=== PATIENT | female | born 1955 | race Caucasian/White ===

== ENCOUNTER → 2019-07-03 10:13 | Outpatient (BNVA) | payer OTHER, SELFPAY | PROVIDERS: Family Provider Nurse Practitioner; PCP Nurse Practitioner; Visit Provider Nurse Practitioner | DX: Z51.81 Encounter for therapeutic drug level monitoring (principal); Z79.01 Long term (current) use of anticoagulants | CPT/HCPCS: 85610 ==

== ENCOUNTER → 2019-08-31 09:34 | Outpatient (BNVA) | payer OTHER, SELFPAY | PROVIDERS: Family Provider Nurse Practitioner; PCP Nurse Practitioner; Visit Provider Nurse Practitioner | DX: Z79.01 Long term (current) use of anticoagulants (principal) | CPT/HCPCS: 85610 ==

== ENCOUNTER → 2019-09-03 10:03 | Outpatient (BNVA) | payer OTHER, SELFPAY | PROVIDERS: Family Provider Nurse Practitioner; PCP Nurse Practitioner; Visit Provider Nurse Practitioner | DX: Z79.01 Long term (current) use of anticoagulants (principal) | CPT/HCPCS: 85610 ==

== ENCOUNTER → 2019-09-10 10:03 | Outpatient (BNVA) | payer OTHER, SELFPAY | PROVIDERS: Family Provider Nurse Practitioner; PCP Nurse Practitioner; Visit Provider Nurse Practitioner | DX: Z79.01 Long term (current) use of anticoagulants (principal) | CPT/HCPCS: 85610 ==

== ENCOUNTER → 2019-09-12 08:25 | Outpatient (BNVA) | payer OTHER, SELFPAY | PROVIDERS: Family Provider Nurse Practitioner; PCP Nurse Practitioner; Visit Provider Nurse Practitioner | DX: Z79.01 Long term (current) use of anticoagulants (principal) | CPT/HCPCS: 85610 ==

== ENCOUNTER → 2019-09-19 12:15 | Outpatient (BNVA) | payer OTHER, SELFPAY | PROVIDERS: Family Provider Nurse Practitioner; PCP Nurse Practitioner; Visit Provider Nurse Practitioner | DX: Z79.01 Long term (current) use of anticoagulants (principal) | CPT/HCPCS: 85610 ==

== ENCOUNTER → 2019-09-26 08:43 | Outpatient (BNVA) | payer OTHER, SELFPAY | PROVIDERS: Family Provider Nurse Practitioner; PCP Nurse Practitioner; Visit Provider Nurse Practitioner | DX: Z00.00 Encounter for general adult medical examination without abnormal findings (principal); Z79.01 Long term (current) use of anticoagulants | CPT/HCPCS: 85610 ==

== ENCOUNTER → 2019-10-10 09:04 | Outpatient (BNVA) | payer OTHER, SELFPAY | PROVIDERS: Family Provider Nurse Practitioner; PCP Nurse Practitioner; Visit Provider Nurse Practitioner | DX: Z00.00 Encounter for general adult medical examination without abnormal findings (principal); Z79.01 Long term (current) use of anticoagulants | CPT/HCPCS: 85610 ==

== ENCOUNTER → 2019-11-15 10:09 | Outpatient (BNVA) | payer OTHER, SELFPAY | PROVIDERS: Family Provider Nurse Practitioner; PCP Nurse Practitioner; Visit Provider Nurse Practitioner | DX: Z51.81 Encounter for therapeutic drug level monitoring (principal); Z79.01 Long term (current) use of anticoagulants | CPT/HCPCS: 85610 ==

== ENCOUNTER → 2019-11-22 09:53 | Outpatient (BNVA) | payer OTHER, SELFPAY | PROVIDERS: Family Provider Nurse Practitioner; PCP Nurse Practitioner; Visit Provider Nurse Practitioner | DX: Z79.01 Long term (current) use of anticoagulants (principal) | CPT/HCPCS: 85610 ==

== ENCOUNTER → 2019-12-07 09:38 | Outpatient (BNVA) | payer OTHER, SELFPAY | PROVIDERS: Family Provider Nurse Practitioner; PCP Nurse Practitioner; Visit Provider Internal Medicine Interventional Cardiology | DX: Z79.01 Long term (current) use of anticoagulants (principal) | CPT/HCPCS: 85610 ==

== ENCOUNTER → 2019-12-20 08:43 | Outpatient (BNVA) | payer OTHER, SELFPAY | PROVIDERS: Family Provider Nurse Practitioner; PCP Nurse Practitioner; Visit Provider Internal Medicine Interventional Cardiology | DX: Z79.01 Long term (current) use of anticoagulants (principal); Z51.81 Encounter for therapeutic drug level monitoring | CPT/HCPCS: 85610 ==

== ENCOUNTER 2019-12-28 11:07 | Outpatient (CLI) | payer OTHER, SELFPAY | END 2019-12-28 11:08 | disposition home or self-care (01) | PROVIDERS: PCP Nurse Practitioner; Visit Provider Family Medicine | DX: Z79.01 Long term (current) use of anticoagulants (principal); Q23.1 Congenital insufficiency of aortic valve | CPT/HCPCS: 85610 ==

== ENCOUNTER 2020-01-01 12:28 | Outpatient (CLI) | payer OTHER, SELFPAY ==
[2020-01-01 13:10] LABS: INR 3.89 (0.8-1.2)
== END 2020-01-01 12:29 | disposition home or self-care (01) ==
PROVIDERS: PCP Nurse Practitioner; Visit Provider Registered Nurse
DX: Z79.01 Long term (current) use of anticoagulants (principal); Q23.1 Congenital insufficiency of aortic valve
CPT/HCPCS: 85610

== ENCOUNTER 2020-01-07 12:49 | Outpatient (CLI) | payer OTHER, SELFPAY ==
[2020-01-07 13:37] LABS: INR 2.66 (0.8-1.2)
== END 2020-01-07 12:50 | disposition home or self-care (01) ==
PROVIDERS: Visit Provider Registered Nurse
DX: Z79.01 Long term (current) use of anticoagulants (principal); Q23.1 Congenital insufficiency of aortic valve
CPT/HCPCS: 85610

== ENCOUNTER 2020-09-01 10:33 | Outpatient (CLI) | payer OTHER, SELFPAY ==
[2020-09-01 11:08] LABS: INR 1.63 (0.8-1.2)
== END 2020-09-01 10:34 | disposition home or self-care (01) ==
LOC: LAB 10:38
PROVIDERS: Visit Provider Registered Nurse
DX: Z79.01 Long term (current) use of anticoagulants (principal); Q23.1 Congenital insufficiency of aortic valve
CPT/HCPCS: 36415; 85610

== ENCOUNTER 2020-12-25 10:45 | Outpatient (CLI) | payer OTHER, SELFPAY ==
[2020-12-25 11:19] LABS: INR 2.36 (0.8-1.2)
== END 2020-12-25 10:46 | disposition home or self-care (01) ==
PROVIDERS: Visit Provider Registered Nurse
DX: Z79.01 Long term (current) use of anticoagulants (principal); Q23.1 Congenital insufficiency of aortic valve
CPT/HCPCS: 36415; 85610

== ENCOUNTER 2021-09-02 09:53 | Outpatient (CLI) | payer OTHER, SELFPAY ==
[2021-09-02 10:43] LABS: INR 2.29 (0.8-1.2)
== END 2021-09-02 09:54 | disposition home or self-care (01) ==
LOC: LAB 09:57
PROVIDERS: Visit Provider Nurse Practitioner
DX: Z79.01 Long term (current) use of anticoagulants (principal); Q23.1 Congenital insufficiency of aortic valve
CPT/HCPCS: 85610

== ENCOUNTER 2021-09-28 11:04 | Outpatient (CLI) | payer OTHER, SELFPAY ==
[2021-09-28 12:12] LABS: INR 2.27 (0.8-1.2)
== END 2021-09-28 11:05 | disposition home or self-care (01) ==
PROVIDERS: Visit Provider Nurse Practitioner
DX: Z79.01 Long term (current) use of anticoagulants (principal); Q23.1 Congenital insufficiency of aortic valve
CPT/HCPCS: 36415; 85610

== ENCOUNTER 2021-10-27 11:05 | Outpatient (CLI) | payer MEDICARE, OTHER, SELFPAY ==
[2021-10-27 12:12] LABS: INR 2.52 (0.8-1.2)
== END 2021-10-27 11:06 | disposition home or self-care (01) ==
PROVIDERS: Visit Provider Nurse Practitioner
DX: Z79.01 Long term (current) use of anticoagulants (principal); Q23.1 Congenital insufficiency of aortic valve
CPT/HCPCS: 36415; 85610

== ENCOUNTER 2021-11-24 13:39 | Outpatient (CLI) | payer MEDICARE, SELFPAY ==
[2021-11-24 15:02] LABS: INR 2.35 (0.8-1.2)
== END 2021-11-24 13:40 | disposition home or self-care (01) ==
LOC: LAB 14:08
PROVIDERS: PCP Family Medicine; Visit Provider Internal Medicine Interventional Cardiology
DX: Z79.01 Long term (current) use of anticoagulants (principal)
CPT/HCPCS: 36415; 85610

== ENCOUNTER 2021-12-23 10:50 | Outpatient (CLI) | payer MEDICARE, SELFPAY ==
[2021-12-23 12:04] LABS: INR 2.19 (0.8-1.2)
== END 2021-12-23 10:51 | disposition home or self-care (01) ==
LOC: LAB 10:52
PROVIDERS: PCP Family Medicine; Visit Provider Internal Medicine Interventional Cardiology
DX: Z79.01 Long term (current) use of anticoagulants (principal)
CPT/HCPCS: 36415; 85610

== ENCOUNTER 2022-02-25 10:09 | Outpatient (CLI) | payer MEDICARE, SELFPAY | END 2022-02-25 10:10 | disposition home or self-care (01) | PROVIDERS: PCP Family Medicine; Visit Provider Internal Medicine Interventional Cardiology | DX: Z79.01 Long term (current) use of anticoagulants (principal) | CPT/HCPCS: 36415; 85610 ==

== ENCOUNTER 2022-07-29 10:42 | Outpatient (CLI) | payer MEDICARE, SELFPAY ==
[2022-07-29 11:16] LABS: INR 1.85 (0.8-1.2)
== END 2022-07-29 10:43 | disposition home or self-care (01) ==
PROVIDERS: PCP Family Medicine; Visit Provider Internal Medicine Interventional Cardiology
DX: Z79.01 Long term (current) use of anticoagulants (principal); Q23.1 Congenital insufficiency of aortic valve; I25.10 Atherosclerotic heart disease of native coronary artery without angina pectoris; I65.21 Occlusion and stenosis of right carotid artery; Z98.890 Other specified postprocedural states; E78.5 Hyperlipidemia, unspecified; E66.01 Morbid (severe) obesity due to excess calories
CPT/HCPCS: 36415; 85610

== ENCOUNTER 2022-08-26 10:46 | Outpatient (CLI) | payer MEDICARE, SELFPAY ==
[2022-08-26 11:24] LABS: INR 1.94 (0.8-1.2)
== END 2022-08-26 10:47 | disposition home or self-care (01) ==
PROVIDERS: PCP Family Medicine; Visit Provider Internal Medicine Interventional Cardiology
DX: I25.10 Atherosclerotic heart disease of native coronary artery without angina pectoris (principal); I65.21 Occlusion and stenosis of right carotid artery; Z79.01 Long term (current) use of anticoagulants; Z95.4 Presence of other heart-valve replacement
CPT/HCPCS: 36415; 85610

== ENCOUNTER 2022-09-23 10:15 | Outpatient (CLI) | payer MEDICARE, OTHER, SELFPAY ==
[2022-09-23 11:15] LABS: INR 2.14 (0.8-1.2)
== END 2022-09-23 10:16 | disposition home or self-care (01) ==
LOC: LAB 10:19
PROVIDERS: PCP Family Medicine; Visit Provider Internal Medicine Interventional Cardiology
DX: Z79.01 Long term (current) use of anticoagulants (principal)
CPT/HCPCS: 36415; 85610

== ENCOUNTER 2022-12-14 10:06 | Outpatient (CLI) | payer MEDICARE, OTHER, SELFPAY | END 2022-12-14 10:07 | disposition home or self-care (01) | PROVIDERS: PCP Family Medicine; Visit Provider Internal Medicine Interventional Cardiology | DX: Z79.01 Long term (current) use of anticoagulants (principal); Q23.1 Congenital insufficiency of aortic valve; I25.10 Atherosclerotic heart disease of native coronary artery without angina pectoris; I65.21 Occlusion and stenosis of right carotid artery; Z95.4 Presence of other heart-valve replacement; Z98.890 Other specified postprocedural states; E78.5 Hyperlipidemia, unspecified; E66.01 Morbid (severe) obesity due to excess calories | CPT/HCPCS: 36415; 85610 ==

== ENCOUNTER 2023-06-16 08:53 | Outpatient (CLI) | payer MEDICARE, SELFPAY ==
[2023-06-16 09:41] LABS: INR 1.97 (0.8-1.2)
== END 2023-06-16 08:54 | disposition home or self-care (01) ==
LOC: LAB 08:57
PROVIDERS: PCP Family Medicine; Visit Provider Internal Medicine Interventional Cardiology
DX: Z79.01 Long term (current) use of anticoagulants (principal); Z95.4 Presence of other heart-valve replacement
CPT/HCPCS: 36415; 85610

== ENCOUNTER 2023-09-06 11:46 | Outpatient (CLI) | payer MEDICARE, SELFPAY | END 2023-09-06 11:47 | disposition home or self-care (01) | LOC: LAB 11:49 | PROVIDERS: PCP Family Medicine; Visit Provider Internal Medicine Interventional Cardiology | DX: Z79.01 Long term (current) use of anticoagulants (principal); Z95.4 Presence of other heart-valve replacement | CPT/HCPCS: 36415; 85610 ==

== ENCOUNTER 2023-09-20 10:50 | Outpatient (CLI) | payer MEDICARE, SELFPAY ==
[2023-09-20 11:43] LABS: INR 2.26 (0.8-1.2)
== END 2023-09-20 10:51 | disposition home or self-care (01) ==
LOC: LAB 10:51
PROVIDERS: PCP Family Medicine; Visit Provider Internal Medicine Interventional Cardiology
DX: Z79.01 Long term (current) use of anticoagulants (principal); Z95.4 Presence of other heart-valve replacement
CPT/HCPCS: 36415; 85610

== ENCOUNTER 2023-11-07 12:19 | Outpatient (CLI) | payer MEDICARE, SELFPAY ==
[2023-11-07 13:06] LABS: INR 1.71 (0.8-1.2)
== END 2023-11-07 12:20 | disposition home or self-care (01) ==
LOC: LAB 12:20
PROVIDERS: PCP Family Medicine; Visit Provider Internal Medicine Interventional Cardiology
DX: Z79.01 Long term (current) use of anticoagulants (principal); Z95.4 Presence of other heart-valve replacement
CPT/HCPCS: 36415; 85610

== ENCOUNTER 2023-12-15 11:11 | Outpatient (CLI) | payer MEDICARE, SELFPAY ==
[2023-12-15 12:09] LABS: INR 1.65 (0.8-1.2)
== END 2023-12-15 11:12 | disposition home or self-care (01) ==
LOC: LAB 11:13
PROVIDERS: PCP Family Medicine; Visit Provider Internal Medicine Interventional Cardiology
DX: Z79.01 Long term (current) use of anticoagulants (principal); Z95.4 Presence of other heart-valve replacement
CPT/HCPCS: 85610

== ENCOUNTER 2023-12-22 11:47 | Outpatient (CLI) | payer MEDICARE, SELFPAY ==
[2023-12-22 13:56] LABS: INR 2.52 (0.8-1.2)
== END 2023-12-22 11:48 | disposition home or self-care (01) ==
LOC: LAB 11:50
PROVIDERS: PCP Family Medicine; Visit Provider Internal Medicine Interventional Cardiology
DX: Z79.01 Long term (current) use of anticoagulants (principal); Z95.4 Presence of other heart-valve replacement
CPT/HCPCS: 36415; 85610

== ENCOUNTER 2023-12-29 11:00 | Outpatient (CLI) | payer MEDICARE, SELFPAY ==
[2023-12-29 11:30] LABS: INR 2.65 (0.8-1.2)
== END 2023-12-29 11:01 | disposition home or self-care (01) ==
LOC: LAB 11:03
PROVIDERS: PCP Family Medicine; Visit Provider Internal Medicine Interventional Cardiology
DX: Z79.01 Long term (current) use of anticoagulants (principal)
CPT/HCPCS: 85610

== ENCOUNTER 2024-12-03 11:53 | Outpatient (CLI) | payer MEDICARE, SELFPAY ==
[2024-12-03 12:30] LABS: INR 2.43 (0.8-1.2); Prothrombin Time 27.80 SECONDS (12.1-14.9)
== END 2024-12-03 11:54 | disposition home or self-care (01) ==
LOC: LAB 11:56
PROVIDERS: PCP Family Medicine
DX: Z95.2 Presence of prosthetic heart valve (principal)
CPT/HCPCS: 36415; 85610